=== PATIENT | female | born 1955 | race Caucasian/White ===

== ENCOUNTER 2017-04-27 09:21 | Outpatient (CLI) | payer BC ==
[2017-04-27 17:20] LABS: BASOPHILS % (AUTO) 0.8 %; EOSINOPHILS # (AUTO) 0.1 10^3/uL (0.0-0.7); EOSINOPHILS % (AUTO) 2.4 %; HCT - HEMATOCRIT 37.3 % (37.0-47.0); HGB - HEMOGLOBIN 12.9 g/dL (12.0-16.0); LYMPHOCYTES # (AUTO) 1.2 10^3/uL (1.5-3.5); LYMPHOCYTES % (AUTO) 26.8 %; MEAN CORPUSCULAR HEMOGLOBIN 31.5 pg (27.0-31.0); MEAN CORPUSCULAR HGB CONC 34.7 g/dL (32.0-36.0); MEAN CORPUSCULAR VOLUME 90.8 fL (81.0-99.0); MEAN PLATELET VOLUME 9.1 fL (7.9-10.8); MONOCYTES # (AUTO) 0.3 10^3/uL (0.0-1.0); MONOCYTES % (AUTO) 6.5 %; NEUTROPHILS # (AUTO) 2.8 10^3/uL (1.5-6.6); NEUTROPHILS % (AUTO) 63.5 %; NUCLEATED RED BLOOD CELLS AUTO 0.1 /100WBC; RED BLOOD COUNT 4.11 10^6/uL (4.20-5.40); RED CELL DISTRIBUTION WIDTH 14.4 % (12.0-15.0); UNCORRECTED WHITE BLOOD COUNT 4.4 x10^3/uL; WHITE BLOOD COUNT 4.4 x10^3/uL (4.8-10.8)
[2017-04-27 17:44] LABS: ALBUMIN/GLOBULIN RATIO 1.3 (1.0-2.2); BILIRUBIN,TOTAL 1.6 mg/dL (0.2-1.0); BUN - BLOOD UREA NITROGEN 20 mg/dL (6-20); CALCIUM 8.9 mg/dL (8.5-10.3); CARBON DIOXIDE - CO2 27 mmol/L (21-32); CHLORIDE 107 mmol/L (101-111); CHOL/HDL RATIO 2.7 (<4.4); CHOLESTEROL 162 mg/dL; CREATININE 0.9 mg/dL (0.4-1.0); GFR - MDRD 64 (>89); GLUCOSE 91 mg/dL (70-100); HDL CHOLESTEROL 60 mg/dL; LDL/HDL RATIO 1.4 (<4.4); POTASSIUM 3.9 mmol/L (3.5-5.0); SODIUM 141 mmol/L (135-145); TRIGLYCERIDES 85 mg/dL; VLDL CHOLESTEROL 17 mg/dL
[2017-04-29 18:41] LABS: TEST RESULT REPORT (())
== END 2017-04-27 09:22 | disposition home or self-care (01) ==
LOC: LAB.R 09:21
PROVIDERS: ATTEND Physician Assistant Medical
DX: Z00.00 Encounter for general adult medical examination without abnormal findings (principal); Z82.49 Family history of ischemic heart disease and other diseases of the circulatory system; E78.2 Mixed hyperlipidemia; I10 Essential (primary) hypertension; Z79.899 Other long term (current) drug therapy
CPT/HCPCS: 80053; 80061; 81599; 83695; 84443; 85025; 86140; 86141

== ENCOUNTER 2017-05-02 11:33 | Outpatient (CLI) | payer BC ==
[2017-05-02] MEDS ORDERED: IOPAMIDOL-300 100 ML VIAL IVP ONE (12:18)
--- NOTE | 2017-05-03 16:04 | CT Report ---
EXAM: CT ABDOMEN AND PELVIS WITH CONTRAST EXAM DATE: 05/02/2017 12:20 PM. CLINICAL HISTORY: 62-year-old female with abdominal pain with family history of ovarian malignancy. E desirae satiety. COMPARISONS: Abdominal wall ultrasound performed on 02/29/2016. Pelvic ultrasound with transvaginal s andrew of 07/06/2015. Complete abdominal ultrasound of 04/29/2014. TECHNIQUE: Routine helical CT imaging was performed through the abdomen and pelvis. IV contrast: 100 mL Isovue-300. Enteric contrast: None. Reconstructions: Coronal and sagittal. In accordance with CT protocol optimization, one or more of the following dose reduction techniques w ere utilized for this exam: automated exposure control, adjustment of mA and/or KV based on patient s ize, or use of iterative reconstructive technique. FINDINGS: Lung Bases: Unremarkable. Liver: Unremarkable. Normal size and contour. No mass or cyst. Gallbladder/Bile Ducts: No gallstones, wall thickening or dilated bile ducts. Spleen: Normal. 1.5 cm splenule adjacent to the mid spleen anteromedially, a normal variant. Pancreas: Normal. Adrenal Glands: Normal. Kidneys: Normal. No masses or hydronephrosis. Peritoneal Cavity/Bowel: Mild to moderate diverticulosis of the distal left and sigmoid colon without inflammatory change. No obstruction or inflammatory bowel disease. No free fluid, free air or adenop athy. No masses or acute inflammatory process. The appendix and terminal ileum are well visualized an d normal. Pelvic Organs: Urinary bladder unremarkable. Uterus appears normal. No adnexal mass, cyst, free fluid or lymphadenopathy. Vasculature: No aneurysms or other significant abnormality. Bones: No acute process or metastatic disease. 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 Other: None. IMPRESSION: No findings suggesting ovarian malignancy or metastatic disease in the abdomen or pelvis. Mild to moderate diverticulosis of the distal left and sigmoid colon without inflammatory change. Remainder of the abdomen and pelvis unremarkable for age. [facility] Referring Provider Line: [phone] SITE ID: [id number]
== END 2017-05-02 11:34 | disposition home or self-care (01) ==
LOC: DI 11:33
PROVIDERS: ATTEND Physician Assistant Medical
DX: R10.84 Generalized abdominal pain (principal); K57.30 Diverticulosis of large intestine without perforation or abscess without bleeding; Z80.41 Family history of malignant neoplasm of ovary
CPT/HCPCS: 74177; Q9967

== ENCOUNTER 2017-05-13 15:40 | Outpatient (CLI) | payer BC ==
--- NOTE | 2017-05-15 08:19 | Mammography Report ---
DIGITAL BILATERAL SCREENING MAMMOGRAM: 05/13/2017 CLINICAL HISTORY: This is a 62-year-old female in for routine screening mammogram. Patient has no f amily history of breast cancer. Patient has had previous surgery. She had a benign biopsy involving the right breast. COMPARISON: 10/24/2009, 01/14/2011, 09/29/2012, 12/12/2013, 07/06/2015 TECHNIQUE: Routine CC and MLO projections were obtained of the breasts. FINDINGS: Significantly heterogeneously dense breasts are noted. There is an oval-shaped, well-circumscribed, benign-appearing mass once again noted in the upper oute r quadrant of the left breast at the 2 o'clock position. This mass measures 1.2 x 0.5 cm. It lies 1 3 cm superolateral to the nipple. This finding is unchanged as compared to multiple prior examinatio ns dated as far back as 09/29/2012. This lack of change most likely indicates it is of benign etiolo gy. It should be followed with annual mammography. No significant clusters of calcification are seen. A few scattered benign-appearing calcifications a re noted in the breasts, especially the right breast. IMPRESSION: SIGNIFICANTLY HETEROGENEOUSLY DENSE BREASTS THAT APPEAR RADIOGRAPHICALLY BENIGN. BIRADS CATEGORY 2 - BENIGN. RECOMMENDATIONS: Annual bilateral screening mammography. STANDARD QUALIFYING STATEMENTS 1. This examination was reviewed with the aid of Computer-Aided Detection (CAD). 2. A negative or benign imaging report should not delay biopsy if clinically suspicious findings are present. Consider surgical consultation if warranted. More than 5% of cancers are not identified by i maging. 3. Dense breasts may obscure an underlying neoplasm. JOB #: [id number] EXT JOB #:[id number]
== END 2017-05-13 15:41 | disposition home or self-care (01) ==
LOC: DI 15:40
PROVIDERS: ATTEND Physician Assistant Medical
DX: Z12.31 Encounter for screening mammogram for malignant neoplasm of breast (principal)
CPT/HCPCS: 77067

== ENCOUNTER 2018-07-14 13:10 | Day surgery (SDC) | payer BC ==
[2018-07-14] MEDS ORDERED: LACTATED RINGERS 1,000 ML IV ONE ×2 (14:02→15:40)
[2018-07-14] MEDS ORDERED: fentaNYL 250 MCG/5 ML VIAL IVP ONE (15:34)
[2018-07-14] MEDS ORDERED: MIDAZOLAM 2 MG/2 ML VIAL IVP ONE (15:34)
[2018-07-14 16:24] VITALS: BP 114/59
== END 2018-07-14 13:11 | disposition home or self-care (01) ==
LOC: SDS 13:10
PROVIDERS: ATTEND Internal Medicine
PROC: 0DJD8ZZ Inspection of Lower Intestinal Tract, Via Natural or Artificial Opening Endoscopic (ICD-10-PCS; principal; 2018-07-14 14:00)
DX: R10.32 Left lower quadrant pain (principal); K57.30 Diverticulosis of large intestine without perforation or abscess without bleeding
CPT/HCPCS: 45378; J7120

== ENCOUNTER 2018-08-13 08:00 | Outpatient (CLI) | payer BC ==
[2018-08-13 12:09] LABS: BASOPHILS # (AUTO) 0.1 10^3/uL (0.0-0.1); BASOPHILS % (AUTO) 1.2 %; EOSINOPHILS # (AUTO) 0.1 10^3/uL (0.0-0.7); EOSINOPHILS % (AUTO) 2.3 %; HGB - HEMOGLOBIN 14.2 g/dL (12.0-16.0); LYMPHOCYTES # (AUTO) 1.3 10^3/uL (1.5-3.5); LYMPHOCYTES % (AUTO) 27.1 %; MEAN CORPUSCULAR HEMOGLOBIN 32.5 pg (27.0-31.0); MEAN CORPUSCULAR HGB CONC 35.5 g/dL (32.0-36.0); MEAN CORPUSCULAR VOLUME 91.5 fL (81.0-99.0); MEAN PLATELET VOLUME 8.9 fL (7.9-10.8); MONOCYTES # (AUTO) 0.4 10^3/uL (0.0-1.0); MONOCYTES % (AUTO) 7.7 %; NEUTROPHILS # (AUTO) 2.9 10^3/uL (1.5-6.6); NEUTROPHILS % (AUTO) 61.7 %; PLT - PLATELET COUNT 180 10^3/uL (130-450); RED BLOOD COUNT 4.36 10^6/uL (4.20-5.40); RED CELL DISTRIBUTION WIDTH 13.5 % (12.0-15.0); WHITE BLOOD COUNT 4.7 x10^3/uL (4.8-10.8)
[2018-08-13 12:29] LABS: ALBUMIN 4.4 g/dL (3.2-5.5); ALBUMIN/GLOBULIN RATIO 1.4 (1.0-2.2); ALKALINE PHOSPHATASE 72 IU/L (42-121); ALT ALANINE AMINOTRANSFERASE 22 IU/L (10-60); AST ASPARTATE AMINOTRANSFERASE 22 IU/L (10-42); BILIRUBIN,TOTAL 2.4 mg/dL (0.2-1.0); BUN - BLOOD UREA NITROGEN 18 mg/dL (6-20); CALCIUM 9.2 mg/dL (8.5-10.3); CARBON DIOXIDE - CO2 30 mmol/L (21-32); CHLORIDE 101 mmol/L (101-111); CHOL/HDL RATIO 3.2 (<4.4); CHOLESTEROL 193 mg/dL; CREATININE 0.9 mg/dL (0.4-1.0); GFR - MDRD 63 (>89); GLUCOSE 99 mg/dL (70-100); HDL CHOLESTEROL 61 mg/dL; LDL CHOLESTEROL,CALCULATED 114 mg/dL; LDL/HDL RATIO 1.9 (<4.4); SODIUM 137 mmol/L (135-145); TOTAL PROTEIN 7.5 g/dL (6.7-8.2); VLDL CHOLESTEROL 18 mg/dL
== END 2018-08-13 08:01 | disposition home or self-care (01) ==
LOC: LAB.R 08:00
PROVIDERS: ATTEND Physician Assistant Medical
DX: E78.2 Mixed hyperlipidemia (principal); I10 Essential (primary) hypertension; Z79.899 Other long term (current) drug therapy
CPT/HCPCS: 80053; 80061; 83721; 84443; 85025

== ENCOUNTER 2018-09-09 08:09 | Outpatient (CLI) | payer BC ==
--- NOTE | 2018-09-09 11:19 | Ultrasound Report ---
Reason: PELVIC PAIN, ELEVATED TOTAL BILIRU Procedure Date: 09/09/2018 Accession Number: [id number] / [id number] Procedure: US - Abdomen Limited CPT Code: FULL RESULT: EXAM: ABDOMEN ULTRASOUND LIMITED, RUQ EXAM DATE: 09/09/2018 09:30 AM. CLINICAL HISTORY: Pelvic pain, elevated total bilirubin. COMPARISON: ABDOMEN/PELVIS W/ 05/02/2017 12:07 PM ABDOMEN LIMITED 02/29/2016 8:30 AM 09/09/2018 10:24 AM 09/09/2018 10:22 AM. TECHNIQUE: Real-time scanning was performed with static images obtained. FINDINGS: Liver: Normal in size with mild increase in echotexture. 14.5 cm. Main portal vein flow: Hepatopetal. Gallbladder: Normal wall thickness. Patient nontender to imaging. No cholelithiasis. Several hyperechoic nonshadowing foci affixed to the gallbladder wall consistent with polyps the largest measures 7 mm. No flow. No pericholecystic fluid. Biliary System: CBD measures 4 mm. No intrahepatic or extrahepatic ductal dilatation. Other: Included views of the right kidney show normal appearance. IMPRESSION: 1. Mild increase in cortical echotexture of the liver could indicate mild hepatic steatosis. 2. Several gallbladder wall polyps, incidentally noted. [facility]
--- NOTE | 2018-09-09 11:34 | Ultrasound Report ---
Reason: POSTMENOPAUSAL, PELVIC PAIN, ELEVATED TOTAL BILIRU Procedure Date: 09/09/2018 Accession Number: [id number] / [id number] Procedure: US - Pelvic w/Transvaginal CPT Code: FULL RESULT: EXAM: PELVIC ULTRASOUND EXAM DATE: 09/09/2018 08:54 AM. CLINICAL HISTORY: Postmenopausal, pelvic pain, elevated total bilirubin. COMPARISON: 09/09/2018 10:22 AM, 09/09/2018 10:24 AM, abdomen/pelvis w/ 05/02/2017 12:07 PM, pelvis complete 07/06/2015 9:07 AM. TECHNIQUE: Realtime transabdominal pelvic scan performed to identify the uterus and adnexa and as an overview of other pelvic structures, followed by transvaginal scan to provide greater detail of the uterus and adnexa, with static image documentation. FINDINGS: Uterus: 5.6 x 2.8 x 3.5 cm, volume 28.7 cc. Anteverted position. Normal overall size and echotexture. Masses: Previously described posterior myometrial fibroid is not appreciated on today's exam. Endometrium: 3 mm. Normal. Cervix: Unremarkable. Right Ovary: 1.5 x 1.2 x 1.3 cm, volume 1.2 cc. Normal echotexture. Left Ovary: 1.2 x 1.2 x 1.3 cm, volume 1.0 cc. Normal echotexture. Free Fluid: None. Other: Incidental nabothian cysts noted. IMPRESSION: Normal pelvic ultrasound for age. [facility]
--- NOTE | 2018-09-09 17:08 | DEXA Report ---
Reason: POSTMENOPAUSAL Procedure Date: 09/09/2018 Accession Number: [id number] / [id number] Procedure: DEX - Dexa Spine and/or Hip CPT Code: FULL RESULT: EXAM: Dexa Spine and/or Hip DATE: 09/09/2018 10:39 AM CLINICAL HISTORY: POSTMENOPAUSAL TECHNIQUE: Dual energy x-ray absorptiometry (DXA) was performed on a Actiwave System. Regions measured are the AP Spine, femoral neck, and if needed forearm. COMPARISON: None. In accordance with the International Society for Clinical Densitometry (ISCD) guidelines, data from previous exams may be reanalyzed using current recommendations and techniques. This is done to allow a more accurate basis for comparison with the current study. FINDINGS: The data for the lumbar spine is as follows: BMD (g/cm/cm) T-SCORE Z-SCORE REGION L1 1.225 0.8 1.2 L2 1.333 1.1 1.5 L3 1.465 2.2 2.6 L4 1.616 3.5 3.8 TOTAL 1.425 2.0 2.4 NOTE: All evaluable vertebrae are used for classification The data for the hip is as follows: BMD (g/cm/cm) T-SCORE Z-SCORE REGION Neck 1.076 0.3 1.0 TOTAL 1.202 1.5 1.9 NOTE: The femoral neck or total proximal femur, whichever is lowest, is used for classification. IMPRESSION: THE WHO CLASSIFICATION BASED ON THE INTERNATIONAL REFERENCE STANDARD IS NORMAL. THE FRACTURE RISK IS NOT INCREASED. RECOMMENDATION: Patients with diagnosis of osteoporosis or osteopenia should have regular bone mineral density assessment. For those eligible for Medicare, routine testing is allowed once every 2 years. Testing frequency can be increased for patients who have rapidly progressing disease or for those who are receiving medical therapy to restore bone mass. COMMENT: World Health Organization (WHO) definitions for osteoporosis and osteopenia: NORMAL BMD: T-score at -1.0 or higher, fracture risk is low OSTEOPENIA BMD: T-score between -1.0 and -2.5, fracture risk is increased. OSTEOPOROSIS BMD: T-score at -2.5 or lower, fracture risk is high. National Osteoporosis Foundation recommends: 1. Obtain adequate dietary calcium (at least 1200 mg per day) and vitamin D (400-800 international units per day). 2. Participate, as appropriate, in regular weightbearing and muscle-strengthening exercise. 3. Avoid tobacco use and reduce alcohol and caffeine intake. 4. For more detailed information see the website at www.NOF.org.
== END 2018-09-09 08:10 | disposition home or self-care (01) ==
LOC: DI 08:09
PROVIDERS: ATTEND Physician Assistant Medical
DX: Z78.0 Asymptomatic menopausal state (principal); R10.2 Pelvic and perineal pain; E80.7 Disorder of bilirubin metabolism, unspecified; K82.4 Cholesterolosis of gallbladder
CPT/HCPCS: 76705; 76830; 76856; 77080

== ENCOUNTER 2018-09-09 08:10 | Outpatient (CLI) | payer BC ==
--- NOTE | 2018-09-10 12:33 | Mammography Report ---
Reason: ANNUAL SCREENING Procedure Date: 09/09/2018 Accession Number: [id number] / [id number] Procedure: JUSTUS - Screening Mammo w/Shawn CPT Code: FULL RESULT: EXAM: Screening Mammo w/Shawn DATE: 09/09/2018 11:26 AM CLINICAL HISTORY: 63-year-old female with history of late childbearing and history of benign right breast biopsy by lumpectomy for screening. TECHNIQUE: Bilateral CC and MLO views were obtained. COMPARISON: 05/13/2017, 07/06/2015, 12/12/2013, 09/29/2012. FINDINGS: The breasts demonstrate heterogeneously dense fibroglandular parenchyma bilaterally. There are coarse typically benign calcifications in the right breast. No suspicious masses, clustered microcalcifications, or regions of architectural distortion are identified. IMPRESSION: Benign findings RECOMMENDATION: Routine annual screening unless otherwise clinically indicated. BIRADS CATEGORY 2: Benign findings STANDARD QUALIFYING STATEMENTS: 1. This examination was not reviewed with the aid of Computer-Aided Detection (CAD). 2. A negative or benign imaging report should not delay biopsy if clinically suspicious findings are present. Consider surgical consultation if warranted. More than 5% of cancers are not identified by imaging. 3. Dense breasts may obscure an underlying neoplasm. 4. This examination was reviewed with the aid of 3D breast imaging (tomosynthesis).
== END 2018-09-09 08:11 | disposition home or self-care (01) ==
LOC: DI 08:10
PROVIDERS: ATTEND Physician Assistant Medical
DX: Z12.31 Encounter for screening mammogram for malignant neoplasm of breast (principal)
CPT/HCPCS: 77063; 77067

== ENCOUNTER 2019-11-02 09:01 | Outpatient (CLI) | payer BC ==
[2019-11-02 09:19] LABS: BASOPHILS # (AUTO) 0.1 10^3/uL (0.0-0.1); EOSINOPHILS # (AUTO) 0.1 10^3/uL (0.0-0.7); EOSINOPHILS % (AUTO) 2.9 %; HGB - HEMOGLOBIN 13.4 g/dL (12.0-16.0); LYMPHOCYTES # (AUTO) 1.4 10^3/uL (1.5-3.5); LYMPHOCYTES % (AUTO) 29.3 %; MEAN CORPUSCULAR HEMOGLOBIN 31.3 pg (27.0-31.0); MEAN CORPUSCULAR HGB CONC 33.9 g/dL (32.0-36.0); MEAN CORPUSCULAR VOLUME 92.3 fL (81.0-99.0); MEAN PLATELET VOLUME 10.3 fL (7.9-10.8); MONOCYTES # (AUTO) 0.3 10^3/uL (0.0-1.0); MONOCYTES % (AUTO) 6.8 %; NEUTROPHILS # (AUTO) 2.9 10^3/uL (1.5-6.6); NEUTROPHILS % (AUTO) 59.6 %; PLT - PLATELET COUNT 167 10^3/uL (130-450); RED BLOOD COUNT 4.28 10^6/uL (4.20-5.40); RED CELL DISTRIBUTION WIDTH 12.7 % (12.0-15.0); WHITE BLOOD COUNT 4.9 x10^3/uL (4.8-10.8)
[2019-11-02 09:50] LABS: ALBUMIN 4.3 g/dL (3.2-5.5); ALBUMIN/GLOBULIN RATIO 1.5 (1.0-2.2); ALKALINE PHOSPHATASE 59 IU/L (42-121); ALT ALANINE AMINOTRANSFERASE 18 IU/L (10-60); AST ASPARTATE AMINOTRANSFERASE 19 IU/L (10-42); BILIRUBIN,TOTAL 1.9 mg/dL (0.2-1.0); BUN - BLOOD UREA NITROGEN 19 mg/dL (6-20); CARBON DIOXIDE - CO2 30 mmol/L (21-32); CHLORIDE 105 mmol/L (101-111); CHOLESTEROL 163 mg/dL; CREATININE 0.9 mg/dL (0.4-1.0); GFR - MDRD 63 (>89); GLUCOSE 109 mg/dL (70-100); HDL CHOLESTEROL 55 mg/dL; LDL CHOLESTEROL,CALCULATED 84 mg/dL; LDL/HDL RATIO 1.5 (<4.4); SODIUM 142 mmol/L (135-145); TOTAL PROTEIN 7.1 g/dL (6.7-8.2); VLDL CHOLESTEROL 24 mg/dL
== END 2019-11-02 09:02 | disposition home or self-care (01) ==
LOC: LAB 09:01
PROVIDERS: ATTEND Nurse Practitioner
DX: Z00.00 Encounter for general adult medical examination without abnormal findings (principal); E78.2 Mixed hyperlipidemia; I10 Essential (primary) hypertension
CPT/HCPCS: 36415; 80053; 80061; 83721; 84443; 85025

== ENCOUNTER 2020-04-25 15:31 | Outpatient (CLI) | payer BC ==
--- NOTE | 2020-04-26 11:11 | Mammography Report ---
BILATERAL DIGITAL SCREENING MAMMOGRAM 3D/2D: 04/25/2020 CLINICAL: Routine screening. Comparison is made to exams dated: 09/12/2018 mammogram, 05/13/2017 mammogram, and 07/06/2015 mammogra m - [facility]. The tissue of both breasts is heterogeneously dense. This may lowe r the sensitivity of mammography. There are grouped linear punctate calcifications in the right breast at 10 o'clock posterior depth. These are more prominent. No other significant masses, calcifications, or other findings are seen in either breast. IMPRESSION: INCOMPLETE: NEEDS ADDITIONAL IMAGING EVALUATION The grouped linear punctate calcifications in the right breast are indeterminate. Additional views w ith possible ultrasound are recommended. This exam was interpreted at Station ID: [id number]. NOTE: For mammograms, a report in lay terms will be sent to the patient. Approximately 15% of breast malignancies will not be visualized mammographically. In the management of a palpable breast mass, a negative mammogram must not discourage biopsy of a clinically suspicious lesion. Electronically Signed By: Renata burks/david:04/26/2020 10:10:38 ACR BI-RADS Category 0: Incomplete 3340F PARENCHYMAL PATTERN: (D) - The breast(s) demonstrate(s) heterogeneously dense fibroglandular helene reed. BI-RADS CATEGORY: (0) - 0 Mammo and [place] [id number] Immediate follow-up LATERALITY: (B)
== END 2020-04-25 15:32 | disposition home or self-care (01) ==
LOC: DI 15:31
PROVIDERS: ATTEND Nurse Practitioner
DX: Z12.31 Encounter for screening mammogram for malignant neoplasm of breast (principal)
CPT/HCPCS: 77063; 77067

== ENCOUNTER 2020-06-07 08:51 | Outpatient (CLI) | payer BC ==
[~2020-06-07 08:51] MED LIST: BUFFERED LIDOCAINE 10 ML SYRINGE ONE; BUPIVACAINE 0.5% PF 10 ML VIAL ONE
[2020-06-07] MEDS ORDERED: BUPIVACAINE 0.5%-EPI 1:200000 PF 30 ML VIAL SUBQ ONE (10:21)
[2020-06-07] MEDS ORDERED: BUFFERED LIDOCAINE 10 ML SYRINGE IU ONE (10:22)
--- NOTE | 2020-06-12 08:14 | Mammography Report ---
DIGITAL TOMOGRAPHIC MAMMOGRAPHY GUIDED STEREOTACTIC GUIDED BIOPSY RIGHT BREAST WITH MARKING DEVICE IN SERTED: 06/07/2020 CLINICAL: Microcalcifications right breast. Correlation is made to exams dated: 04/25/2020 mammogram, 04/25/2020 mammogram, 09/12/2018 mammogram, mammogram, 05/13/2017 mammogram, and 05/24/2020 mammogram - [facility]. A stereotactic guided biopsy was performed for the area of grouped and linear fine calcifications loc ated in the right breast at 8 o'clock middle depth. This was described on the previous mammography r eport. The skin was prepped in the usual manner. Local anesthetic was administered to the access si te. A small incision was made in the breast. The abnormality was approached from the craniocaudal a spect using an upright digital tomographic mammography unit. A 9 gauge biopsy needle was placed ayad cent to the abnormality under computer guidance and confirmatory stereotactic mammography images were obtained to document needle placement. Once the needle was documented to be in the correct location , specimens were obtained using an automated biopsy gun. A clip was inserted into the biopsy cavity. A skin closure strip and a sterile dressing were applied to the access site. Post procedure imagin g demonstrates the location device at the targeted area and partial removal of the calcifications. T he specimen was sent to the laboratory for pathological analysis. IMPRESSION: STEREOTACTIC GUIDED BIOPSY MALIGNANT Stereotactic guided biopsy of the area of grouped and linear fine calcifications in the right breast at 8 o'clock middle depth was successful with no apparent post procedure complications. 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 Pathology results are concordant with imaging fin dings. Multiple specimens have micro calcifications. A surgical/oncologic consultation is recommend ed. This exam was interpreted at Station ID: [id number]. Jasen Vazquez M.D. jr,aty/penrad:06/11/2020 18:21:11 BI-RADS CATEGORY: () - Unspecified - other recall n/a LATERALITY: (B)
== END 2020-06-07 08:52 | disposition home or self-care (01) ==
LOC: DI 08:51
PROVIDERS: ATTEND Nurse Practitioner
DX: D05.11 Intraductal carcinoma in situ of right breast (principal)
CPT/HCPCS: 19081

== ENCOUNTER 2021-11-22 13:58 | Outpatient (CLI) | payer MEDICARE, BC ==
--- NOTE | 2021-11-22 18:19 | XRAY Report ---
PROCEDURE: Foot 3 View RT INDICATIONS: [id number]. First and fifth toe pain. TECHNIQUE: 3 views of the foot were acquired. COMPARISON: None FINDINGS: Bones: No fractures or dislocations. No suspicious bony lesions. Minimal first MTP joint degenerati ve change. Prominent plantar calcaneal spur. Posterior calcaneal spur. Soft tissues: No tibiotalar joint effusion. Achilles tendon appears normal. IMPRESSION: 1. No evidence of acute fracture or dislocation. 2. Minimal first MTP degenerative change. 3. Plantar and posterior calcaneal spurs. Reviewed by: Gabriel Egan MD on 11/22/2021 6:18 PM PST Approved by: Gabriel Egan MD on 11/22/2021 6:18 PM PST Station ID: [id number]
== END 2021-11-22 13:59 | disposition home or self-care (01) ==
LOC: DI 13:58
PROVIDERS: ATTEND Podiatrist
DX: M79.674 Pain in right toe(s) (principal); M19.071 Primary osteoarthritis, right ankle and foot; M77.31 Calcaneal spur, right foot

== ENCOUNTER 2021-11-26 09:16 | Outpatient (CLI) | payer MEDICARE, BC | END 2021-11-26 09:17 | disposition home or self-care (01) | LOC: LAB 09:16 | PROVIDERS: ATTEND Naturopath | DX: E78.00 Pure hypercholesterolemia, unspecified (principal) | CPT/HCPCS: 80061; 81599; 82172; 83695; 83704 ==

== ENCOUNTER 2022-01-30 15:59 | Outpatient (CLI) | payer MEDICARE, BC | END 2022-01-30 16:00 | disposition home or self-care (01) | LOC: RT 15:59 | PROVIDERS: ATTEND Podiatrist | DX: Z01.810 Encounter for preprocedural cardiovascular examination (principal) | CPT/HCPCS: 93005 ==

== ENCOUNTER 2022-09-19 12:52 | Outpatient (CLI) | payer MEDICARE, BC ==
--- NOTE | 2022-09-19 15:45 | MRI Report ---
PROCEDURE: HIP WO - LT INDICATIONS: LEFT HIP PAIN TECHNIQUE: Noncontrast coronal T1 spin echo and STIR through the bony pelvis. Coronal and axial T2 fast spin ec ho with fat saturation, sagittal T1 spin echo, and oblique axial T2 fast spin echo with fat saturatio n through the hip. COMPARISON: None. FINDINGS: Image quality: Excellent. Bones and joints: Bone marrow of the pelvic ring and proximal femurs show normal signal throughout. No intraosseous lesions or fractures. No avascular necrosis of the femoral heads. There is disc de siccation and degenerative facet hypertrophy in the lumbar spine. Tendons: The gluteus medius and minimus tendons demonstrate mild tendinosis. The iliopsoas tendon a ppears intact, without adjacent bursal fluid collections. The origin of the hamstring tendon demonst rates mild tendinosis. The tendons for the direct and indirect heads of the rectus femoris muscle ap pear intact. Labrum and cartilage: There is full-thickness cartilage loss at the superior aspect of the hip with subchondral cystic changes on both sides of the joint as well as subchondral edema and marginal osteo phyte formation. There is diffuse labral degeneration and chronic degenerative tearing. Moderate left hip effusion. Soft tissues: Visualized muscles demonstrate normal bulk and internal signal. The proximal sciatic neurovascular bundle appears normal adjacent to the hamstring tendons. Multiple diverticula are seen in the colon without signs of acute diverticulitis. IMPRESSION: 1.Left hip osteoarthrosis with full-thickness cartilage loss at the superior aspects of the head as w ell as subchondral cystic changes and edema and marginal osteophyte formation. Diffuse labral degener ation and chronic degenerative tearing. 2.Mild distal gluteus medius and minimus tendinosis. 3.Mild proximal tendinosis. 4.Degenerative changes are also seen in the lumbar spine. Reviewed by: Bam Morris MD on 09/19/2022 3:44 PM PST Approved by: Bam Morris MD on 09/19/2022 3:44 PM PST Station ID: [id number]
== END 2022-09-19 12:53 | disposition home or self-care (01) ==
LOC: DI 12:52
PROVIDERS: ATTEND Naturopath
DX: M16.12 Unilateral primary osteoarthritis, left hip (principal); M67.952 Unspecified disorder of synovium and tendon, left thigh; M47.816 Spondylosis without myelopathy or radiculopathy, lumbar region; M51.36 Other intervertebral disc degeneration, lumbar region

== ENCOUNTER 2022-11-11 14:41 | Outpatient (CLI) | payer MEDICARE, BC ==
--- NOTE | 2022-11-11 19:02 | XRAY Report ---
PROCEDURE: Hip 2 View LT INDICATIONS: LEFT HIP PAIN TECHNIQUE: 3 views of the hip were acquired. COMPARISON: MRI hip 09/19/2022, CT abdomen pelvis 05/02/2017. FINDINGS: Bones: Moderate bilateral hip DJD. Question of cam deformity at the left femoral neck. No fractures or dislocations. No suspicious bony lesions. The visualized pelvic ring appears intact. Soft tissues: No suspicious soft tissue calcifications or masses. IMPRESSION: Moderate left hip DJD. Reviewed by: Dylan Bernstein MD on 11/11/2022 7:01 PM PST Approved by: Dylan Bernstein MD on 11/11/2022 7:01 PM PST Station ID: [id number]
== END 2022-11-11 14:42 | disposition home or self-care (01) ==
LOC: DI.WOS 14:41
PROVIDERS: ATTEND Physician Assistant Surgical
DX: M16.12 Unilateral primary osteoarthritis, left hip (principal)

== ENCOUNTER 2023-08-25 15:32 | Outpatient (CLI) | payer MEDICARE, BC | END 2023-08-25 15:33 | disposition home or self-care (01) | LOC: LAB 15:32 | DX: Z01.812 Encounter for preprocedural laboratory examination (principal); M25.552 Pain in left hip | CPT/HCPCS: 87640 ==

== ENCOUNTER 2023-08-25 15:52 | Outpatient (CLI) | payer MEDICARE, BC | END 2023-08-25 15:53 | disposition home or self-care (01) | LOC: RT 15:52 | PROVIDERS: ATTEND Orthopaedic Surgery | DX: Z01.818 Encounter for other preprocedural examination (principal); M25.552 Pain in left hip | CPT/HCPCS: 87640; 93005 ==